=== PATIENT | male | born 1975 | race African-American/Black ===

== ENCOUNTER 2024-06-02 16:25 | Emergency (ER) | payer SELFPAY ==
[~2024-06-02] VITALS: Ht 177.8 cm; Wt 84.1 kg
[~2024-06-02 16:25] MED LIST: ANTIVERT 25MG25 MG PO; CIPRO 500MG TA500 MG PO; MEDROL 4MG DOSPA4 MG PO; NAPROSYN500 MG PO; NO HOME MEDICATIONS; NORCO 325 MG-51 TAB PO; ONE DAILY MEN'S1 TAB PO; PERCOCET 325 MG1 TA2 PO
[2024-06-02 16:33] VITALS: TEMP 98.2
[2024-06-02] MEDS ORDERED: Meloxicam 7.5 MG TAB PO ONE (19:45)
[2024-06-02] MEDS ORDERED: NEURONTIN600 MG/TAB (19:49)
[2024-06-02] MEDS ORDERED: NORCO 325 MG-51 TAB PO (20:18)
[2024-06-02 20:30] VITALS: BP 152/98; PULSE 92
[2024-06-02] MEDS ORDERED: MOBIC 7.5MG7.5 MG PO (20:31)
== END 2024-06-02 20:31 | disposition home or self-care (01) ==
LOC: COL.ER 16:25
DX: S83.92XA Sprain of unspecified site of left knee, initial encounter (principal); Z89.512 Acquired absence of left leg below knee; X50.1XXA Overexertion from prolonged static or awkward postures, initial encounter